=== PATIENT | male | born 1955 | race Caucasian/White ===

== ENCOUNTER → 2024-01-09 09:30 | Outpatient (BNVA) | payer MEDICARE, SELFPAY | PROVIDERS: PCP Family Medicine; Visit Provider Family Medicine | DX: Z76.89 Persons encountering health services in other specified circumstances (principal); E55.9 Vitamin D deficiency, unspecified; I10 Essential (primary) hypertension; E78.2 Mixed hyperlipidemia; E03.9 Hypothyroidism, unspecified; K21.9 Gastro-esophageal reflux disease without esophagitis | CPT/HCPCS: 80053; 80061; 82306; 84439; 84443; 85025 ==

== ENCOUNTER 2024-01-31 13:26 | Outpatient (CLI) | payer MEDICARE, SELFPAY ==
--- NOTE | 2024-01-31 13:51 | XR_ITS ---
WS: [id number] Chest 2 views, 01/31/2024 Clinical Data: POSTERIOR CYCLITIS Comparison: None. Findings: No nodules, masses or effusions are seen. The heart is normal. The pulmonary vascularity is not increased. No pneumonia or pneumothorax is seen. The aortic arch and descending thoracic aorta s how tortuosity. XR/XR chest 2V* [id number] Impression: Atherosclerosis.
[2024-02-01 13:50] LABS: RPR w(Moniotor) w/REFL Titer NON-REACTIVE (NON-REACTIVE)
[2024-02-02 12:53] LABS: Angiotensin Converting Enzyme 33 U/L (9-67); Quantiferon Nil 0.01 IU/mL; Quantiferon TB Gold NEGATIVE (NEGATIVE)
== END 2024-01-31 13:27 | disposition home or self-care (01) ==
LOC: LAB 13:28
PROVIDERS: PCP Family Medicine
DX: H30.21 Posterior cyclitis, right eye (principal); I70.0 Atherosclerosis of aorta
CPT/HCPCS: 36415; 71046; 82164; 86480; 86592